=== PATIENT | male | born 2000 | race Caucasian/White ===

== ENCOUNTER 2021-05-06 12:26 | Inpatient (IN) | payer BC ==
[2021-05-06 15:36] VITALS: BMI 22.6
[2021-05-06] MEDS ORDERED: clonazePAM 0.5 MG ODT TABLETS SL PRN (15:45)
[2021-05-06] MEDS ORDERED: MENTHOL/PHENOL 1 EACH UD MM PRN (15:45)
[2021-05-06] MEDS ORDERED: MAGNESIUM CITRATE 300 ML BOTTLE PO PRN (15:45)
[2021-05-06] MEDS ORDERED: MAGNESIUM HYDROX 2400MG/30ML ORAL SUSPENSION 30 ML CUP PO PRN (15:45)
[2021-05-06] MEDS ORDERED: ACETAMINOPHEN 325 MG TABLET (FP) PO PRN (15:45)
[2021-05-06] MEDS ORDERED: ONDANSETRON *ODT* 4 MG TABLET SL PRN (15:45)
[2021-05-06] MEDS ORDERED: MAG HYDROX/AL HYDROX/SIMETH 30 ML UNIT-DOSE CUP PO PRN (15:45)
[2021-05-06] MEDS ORDERED: BISMUTH SUBSALICYLATE 524 MG/30 ML PO PRN (15:45)
[2021-05-06] MEDS ORDERED: PRENATAL VITAMINS W/ FOLIC ACID TABLET (FP) PO SCH (16:00)
[2021-05-06] MEDS ORDERED: methaDONE HCL 10 MG TABLET (FOR DETOX USE ONLY) PO ONE (16:15)
[2021-05-06] MEDS: LORazepam 2 MG TABLET PO SCH ×2 (17:03→22:27)
[2021-05-06] MEDS: NICOTINE 10 MG CARTRIDGE (INHALER) IH PRN (17:06)
[2021-05-06] MEDS: hydrOXYzine PAMOATE 25 MG CAPSULE (FP) PO SCH ×2 (18:24→22:10)
[2021-05-06] MEDS: MELATONIN 5 MG TABLETS PO SCH (22:09)
[2021-05-06] MEDS: THIAMINE HCL 100 MG TABLET (FP) PO SCH (22:09)
[2021-05-06] MEDS: cloNIDine HCL 0.1 MG TABLET PO PRN (22:10)
[2021-05-07] MEDS: LORazepam 1 MG TABLET PO PRN ×2 (01:40→14:56)
[2021-05-07] MEDS: hydrOXYzine PAMOATE 25 MG CAPSULE (FP) PO SCH ×5 (05:23→22:11)
[2021-05-07] MEDS: LORazepam 2 MG TABLET PO SCH ×4 (05:23→22:11)
[2021-05-07] MEDS: NICOTINE POLACRILEX 2 MG GUM BC PRN ×2 (08:01→13:26)
[2021-05-07] MEDS ORDERED: methaDONE HCL 10 MG TABLET (FOR DETOX USE ONLY) ONE (09:14)
[2021-05-07 10:12] LABS: HEMATOCRIT 41.2 % (35.4-49); HEMOGLOBIN 14.2 GM/dL (11.7-16.9); MCH 29.7 pg (25.7-33.7); MCHC 34.6 g/dl (32.0-35.9); MEAN CELL VOLUME 86.1 fl (80-96); MEAN PLT VOLUME 9.2 fl (7.5-11.1); PLATELET COUNT 273 10^3/uL (134-434); RBC 4.78 M/mm3 (4.00-5.60); WHITE BLOOD COUNT 7.6 K/mm3 (4.0-10.0)
[2021-05-07 10:23] LABS: ALBUMIN 3.8 g/dl (3.4-5.0); CALCIUM 8.9 mg/dL (8.5-10.1)
[2021-05-07 10:24] LABS: BLOOD UREA NITROGEN 12.1 mg/dL (7-18)
[2021-05-07 10:26] LABS: CREATININE 0.8 mg/dL (0.55-1.3)
[2021-05-07 10:28] LABS: BILIRUBIN,TOTAL 0.4 mg/dL (0.2-1); TOT PROT 7.5 g/dl (6.4-8.2)
[2021-05-07] MEDS: NICOTINE 21 MG/24 HOURS TOPICAL PATCH TD PRN (13:26)
[2021-05-07] MEDS: NICOTINE 10 MG CARTRIDGE (INHALER) IH PRN (18:29)
[2021-05-07] MEDS: THIAMINE HCL 100 MG TABLET (FP) PO SCH (22:11)
[2021-05-07] MEDS: MELATONIN 5 MG TABLETS PO SCH (22:13)
[2021-05-08] MEDS: LORazepam 1 MG TABLET PO SCH ×4 (04:58→22:16)
[2021-05-08] MEDS: hydrOXYzine PAMOATE 25 MG CAPSULE (FP) PO SCH ×5 (04:59→22:19)
[2021-05-08] MEDS ORDERED: methaDONE HCL 10 MG TABLET (FOR DETOX USE ONLY) PO ONE (10:00)
[2021-05-08] MEDS: cloNIDine HCL 0.1 MG TABLET PO PRN ×3 (11:25→22:15)
[2021-05-08] MEDS: NICOTINE 10 MG CARTRIDGE (INHALER) IH PRN (13:04)
[2021-05-08] MEDS: NICOTINE POLACRILEX 2 MG GUM BC PRN (13:04)
[2021-05-08] MEDS: METHOCARBAMOL 500 MG TABLET PO PRN ×2 (13:04→22:15)
[2021-05-08] MEDS: NICOTINE 21 MG/24 HOURS TOPICAL PATCH TD PRN (14:31)
[2021-05-08] MEDS: THIAMINE HCL 100 MG TABLET (FP) PO SCH (22:15)
[2021-05-08] MEDS: MELATONIN 5 MG TABLETS PO SCH (22:17)
[2021-05-09] MEDS ORDERED: LORazepam 0.5 MG TABLET PO PRN
[2021-05-09] MEDS: LORazepam 0.5 MG TABLET PO SCH ×4 (05:42→22:30)
[2021-05-09] MEDS: hydrOXYzine PAMOATE 25 MG CAPSULE (FP) PO SCH ×5 (05:44→22:27)
[2021-05-09] MEDS ORDERED: methaDONE HCL 10 MG TABLET (FOR DETOX USE ONLY) ONE (09:28)
[2021-05-09] MEDS: METHOCARBAMOL 500 MG TABLET PO PRN ×2 (10:11→22:43)
[2021-05-09] MEDS: NICOTINE 10 MG CARTRIDGE (INHALER) IH PRN ×2 (10:13→16:30)
[2021-05-09] MEDS: ACETAMINOPHEN 325 MG TABLET (FP) PO PRN (13:23)
[2021-05-09] MEDS: NICOTINE POLACRILEX 2 MG GUM BC PRN (16:30)
[2021-05-09] MEDS: MELATONIN 5 MG TABLETS PO SCH (22:27)
[2021-05-09] MEDS: THIAMINE HCL 100 MG TABLET (FP) PO SCH (22:27)
[2021-05-09] MEDS: IBUPROFEN 400 MG TABLET (FP) PO PRN (22:28)
[2021-05-10] MEDS ORDERED: LORazepam 0.5 MG TABLET PO ONE (05:00)
[2021-05-10] MEDS: hydrOXYzine PAMOATE 25 MG CAPSULE (FP) PO SCH ×5 (06:39→22:46)
[2021-05-10] MEDS: ACETAMINOPHEN 325 MG TABLET (FP) PO PRN ×2 (06:41→12:23)
[2021-05-10] MEDS: METHOCARBAMOL 500 MG TABLET PO PRN ×2 (06:43→12:23)
[2021-05-10] MEDS ORDERED: methaDONE HCL 10 MG TABLET (FOR DETOX USE ONLY) PO ONE (10:00)
[2021-05-10] MEDS: NICOTINE 10 MG CARTRIDGE (INHALER) IH PRN (10:12)
[2021-05-10] MEDS: THIAMINE HCL 100 MG TABLET (FP) PO SCH (22:46)
[2021-05-10] MEDS: IBUPROFEN 400 MG TABLET (FP) PO PRN (22:46)
[2021-05-10] MEDS: MELATONIN 5 MG TABLETS PO SCH (22:47)
[2021-05-11] MEDS: hydrOXYzine PAMOATE 25 MG CAPSULE (FP) PO SCH ×2 (05:36→10:52)
[2021-05-11 09:45] VITALS: TEMP 95.9
[2021-05-11] MEDS: IBUPROFEN 400 MG TABLET (FP) PO PRN (10:50)
[2021-05-11 11:00] VITALS: BP 130/93; PULSE 104
== END 2021-05-11 11:35 | disposition home or self-care (01) | DRG 897 ==
LOC: YASAS 12:26 → Y6N 13:57
PROVIDERS: ADMIT Allergy & Immunology; ATTEND Allergy & Immunology
PROC: HZ2ZZZZ Detoxification Services for Substance Abuse Treatment (ICD-10-PCS; principal; 2021-05-06)
DX: F11.23 Opioid dependence with withdrawal (principal); F13.230 Sedative, hypnotic or anxiolytic dependence with withdrawal, uncomplicated; F12.10 Cannabis abuse, uncomplicated; F17.210 Nicotine dependence, cigarettes, uncomplicated; F19.24 Other psychoactive substance dependence with psychoactive substance-induced mood disorder; R03.0 Elevated blood-pressure reading, without diagnosis of hypertension
CPT/HCPCS: 36415; 80053; 85027; 86780; C9803; J0735; U0003; U0005